=== PATIENT | female | born 1965 | race Caucasian/White ===

== ENCOUNTER 2019-09-10 09:33 | Emergency (ER) | payer OTHER ==
--- NOTE | 2019-09-10 10:08 | ER ---
Nurse's Notes [facility] Name: Diana Mcallister Age: 54 yrs Sex: Female : 1965 Arrival Date: 09/10/2019 Time: 09:35 Bed 12 Private MD: Diagnosis: Unspecified open wound of right upper arm Presentation: 09/10 09:53 Presenting complaint: Patient states: had a sore on her right upper arm that she was iw picking at, stated bleeding and wouldn't stop. Transition of care: patient was not received from another setting of care. Onset of symptoms was September 10, 2019. Risk Assessment: Do you want to hurt yourself or someone else? Patient reports no desire to harm self or others. Initial Sepsis Screen: Does the patient meet any 2 criteria? No. Patient's initial sepsis screen is negative. Does the patient have a suspected source of infection? No. Patient's initial sepsis screen is negative. Care prior to arrival: None. 09:53 Method Of Arrival: Ambulatory iw 09:53 Acuity: BLANQUITA 5 iw Triage Assessment: 10:11 General: Appears distressed, Behavior is calm. iw Historical: - Allergies: 09:54 No Known Allergies; iw - Home Meds: 09:54 Metoprolol Tartrate Oral [Active]; iw - PMHx: 09:54 Hypertension; iw - PSHx: 09:54 Hysterectomy; iw - Immunization history:: Adult Immunizations not up to date. - Social history:: Smoking status: Patient/guardian denies using tobacco. - Ebola Screening: : Patient negative for fever greater than or equal to 101.5 degrees Fahrenheit, and additional compatible Ebola Virus Disease symptoms Patient denies exposure to infectious person Patient denies travel to an Ebola-affected area in the 21 days before illness onset No symptoms or risks identified at this time. Screenin:16 Abuse screen: Denies threats or abuse. Denies injuries from another. Nutritional iw screening: No deficits noted. Tuberculosis screening: No symptoms or risk factors identified. Fall Risk None identified. Assessment: 10:00 General: Appears in no apparent distress. Pain: Denies pain. Neuro: Level of iw Consciousness is awake, alert, obeys commands, Oriented to person, place, time, situation, Moves all extremities. Full function. Cardiovascular: Patient's skin is warm and dry. Respiratory: Respiratory effort is even, unlabored. Derm: Skin is intact, is healthy with good turgor. Musculoskeletal: Range of motion: intact in all extremities. Vital Signs: 09:54 BP 142 / 94; Pulse 78; Resp 16; Temp 98.2; Pulse Ox 100% on R/A; Weight 68.04 kg; iw Height 5 ft. 3 in. (160.02 cm); 09:54 Body Mass Index 26.57 (68.04 kg, 160.02 cm) iw ED Course: 09:35 Patient arrived in ED. mr 09:41 Narda Riley FNP-C is PHCP. kb 09:41 Shiv Romero MD is Attending Physician. kb 09:54 Triage completed. iw 09:55 Arm band placed on. iw 09:57 Narda Riley FNP-C is PHCP. kb 09:57 Shiv Romero MD is Attending Physician. kb 10:00 Patient has correct armband on for positive identification. iw 10:16 No provider procedures requiring assistance completed. Patient did not have IV access iw during this emergency room visit. 10:17 Agnes Mayfield, RN is Primary Nurse. iw Administered Medications: No medications were administered Outcome: 10:08 Discharge ordered by MD. kb 10:16 Discharged to home ambulatory. iw 10:16 Condition: good 10:16 Discharge instructions given to patient, Instructed on discharge instructions, follow up and referral plans. wound care, Demonstrated understanding of instructions, follow-up care, wound care. 10:17 Patient left the ED. iw Signatures: Narda Riley FNP-C FNP-Bobbi Escalante Agnes Mayfield, RN RN iw
--- NOTE | 2019-09-10 10:08 | EDPHYS ---
Physician Documentation [facility] Name: Diana Mcallister Age: 54 yrs Sex: Female : 1965 Arrival Date: 09/10/2019 Time: 09:35 Bed 12 Private MD: ED Physician Shiv Romero HPI: 09/10 10:06 This 54 yrs old Female presents to ER via Ambulatory with complaints of Skin kb Sore(s). 10:06 Associated signs and symptoms: The patient has no apparent associated signs or kb symptoms. The patient has not experienced similar symptoms in the past. The patient has not recently seen a physician. Pt reports she had a blood blister that had been on right upper arm for years and she has been picking at it. Last night it started bleeding after she picked at it, she put a dressing on it and it was stopped this morning. Then while at work it started bleeding again so she came to see if it needed to be stitched or cauterized. No bleeding noted at this time. Historical: - Allergies: 09:54 No Known Allergies; iw - Home Meds: 09:54 Metoprolol Tartrate Oral [Active]; iw - PMHx: 09:54 Hypertension; iw - PSHx: 09:54 Hysterectomy; iw - Immunization history:: Adult Immunizations not up to date. - Social history:: Smoking status: Patient/guardian denies using tobacco. - Ebola Screening: : Patient negative for fever greater than or equal to 101.5 degrees Fahrenheit, and additional compatible Ebola Virus Disease symptoms Patient denies exposure to infectious person Patient denies travel to an Ebola-affected area in the 21 days before illness onset No symptoms or risks identified at this time. ROS: 10:05 Constitutional: Negative for fever, chills, and weight loss, Neck: Negative for injury, kb pain, and swelling, Cardiovascular: Negative for chest pain, palpitations, and edema, Respiratory: Negative for shortness of breath, cough, wheezing, and pleuritic chest pain, Abdomen/GI: Negative for abdominal pain, nausea, vomiting, diarrhea, and constipation, Back: Negative for injury and pain, : Negative for injury, bleeding, discharge, and swelling, MS/Extremity: Negative for injury and deformity, Neuro: Negative for headache, weakness, numbness, tingling, and seizure. 10:05 Skin: Positive for open wound. Exam: 10:05 Constitutional: This is a well developed, well nourished patient who is awake, alert, kb and in no acute distress. Head/Face: Normocephalic, atraumatic. Neck: Trachea midline, no thyromegaly or masses palpated, and no cervical lymphadenopathy. Supple, full range of motion without nuchal rigidity, or vertebral point tenderness. No Meningismus. Chest/axilla: Normal chest wall appearance and motion. Nontender with no deformity. No lesions are appreciated. Cardiovascular: Regular rate and rhythm with a normal S1 and S2. No gallops, murmurs, or rubs. Normal PMI, no JVD. No pulse deficits. Respiratory: Lungs have equal breath sounds bilaterally, clear to auscultation and percussion. No rales, rhonchi or wheezes noted. No increased work of breathing, no retractions or nasal flaring. Abdomen/GI: Soft, non-tender, with normal bowel sounds. No distension or tympany. No guarding or rebound. No evidence of tenderness throughout. Back: No spinal tenderness. No costovertebral tenderness. Full range of motion. MS/ Extremity: Pulses equal, no cyanosis. Neurovascular intact. Full, normal range of motion. Neuro: Awake and alert, GCS 15, oriented to person, place, time, and situation. Cranial nerves II-XII grossly intact. Motor strength 5/5 in all extremities. Sensory grossly intact. Cerebellar exam normal. Normal gait. 10:05 Skin: open wound the size of a pen tip noted to right upper arm. No bleeding noted. Vital Signs: 09:54 BP 142 / 94; Pulse 78; Resp 16; Temp 98.2; Pulse Ox 100% on R/A; Weight 68.04 kg; iw Height 5 ft. 3 in. (160.02 cm); 09:54 Body Mass Index 26.57 (68.04 kg, 160.02 cm) iw MDM: 09:57 Patient medically screened. kb 10:04 Data reviewed: vital signs, nurses notes. Data interpreted: Pulse oximetry: on room air kb is 100 %. Interpretation: normal. Counseling: I had a detailed discussion with the patient and/or guardian regarding: the historical points, exam findings, and any diagnostic results supporting the discharge/admit diagnosis, the need for outpatient follow up, a family practitioner, to return to the emergency department if symptoms worsen or persist or if there are any questions or concerns that arise at home. Administered Medications: No medications were administered Disposition: 09/10/19 10:08 Discharged to Home. Impression: Unspecified open wound of right upper arm. - Condition is Stable. - Discharge Instructions: Wound Care. - Medication Reconciliation Form, Thank You Letter, Antibiotic Education, Prescription Opioid Use form. - Follow up: Emergency Department; When: As needed; Reason: Worsening of condition. Follow up: Private Physician; When: 2 - 3 days; Reason: Recheck today's complaints, Continuance of care, Re-evaluation by your physician. Addendum: 09/11/2019 15:15 Co-signature as Attending Physician, Shiv Romero MD. g s Signatures: Narda Riley, [employer]-Ckb Agnes Mayfield RN RN iw Shiv Romero MD MD Corrections: (The following items were deleted from the chart) 09/10 10:17 10:08 09/10/2019 10:08 Discharged to Home. Impression: Unspecified open wound of right iw upper arm. Condition is Stable. Forms are Medication Reconciliation Form, Thank You Letter, Antibiotic Education, Prescription Opioid Use. Follow up: Emergency Department; When: As needed; Reason: Worsening of condition. Follow up: Private Physician; When: 2 - 3 days; Reason: Recheck today's complaints, Continuance of care, Re-evaluation by your physician. kb
[2019-09-10 10:22] VITALS: BP 142/94; TEMP 98.2; O2SAT 100
== END 2019-09-10 10:17 | disposition home or self-care (01) ==
LOC: ER 09:33
DX: S41.101A Unspecified open wound of right upper arm, initial encounter (principal); I10 Essential (primary) hypertension
CPT/HCPCS: 99281